=== PATIENT | male | born 1940 | race Caucasian/White ===

== ENCOUNTER → 2018-08-26 | Day surgery (SDC) | payer MEDICARE, BC ==
[2018-08-19 14:23] VITALS: BMI 30.3
[~2018-08-26] MED LIST: ALPRAZolam 0.25 MG TAB PO PRN; ALPRAZolam 0.5 MG TAB PO PRN; ASPIRIN 325 MG TAB PO STA; ATORVASTATIN 80 MG TAB PO STA; IOPAMIDOL-370 125ML BTL INJ ONE; LIDOCAINE 1% (PF) 10MG/ML VIAL SQ ONE; LIDOCAINE 1% INJ 10MG/ML (20 ML MDV) ONE; MIDAZOLAM 2 MG/2 ML VIAL IVP ONE; MIDAZOLAM 2 MG/2 ML VIAL ONE; NITROGLYCERIN SL TABS 0.4 MG TAB SUBLINGUAL PRN; RX INFO: IV CONTRAST WAS GIVEN 1 EACH MISC MISCELLANE PRN; SODIUM CHLORIDE 0.9% 1,000 ML IV SCH; SODIUM CHLORIDE 0.9% 1,000 ML in EMPTY BAG 1 BAG IV ONE; fentaNYL (PF) 50 MCG/ML 2 ML AMP IVP ONE; fentaNYL (PF) 50 MCG/ML 2 ML AMP ONE
[2018-08-26 08:41] VITALS: TEMP 98.1
[2018-08-26 08:44] LABS: Glucose,Whole Blood 165 mg/dL (75-99)
--- NOTE | 2018-08-26 10:06 | CC ---
CARDIAC CATHETERIZATION REPORT DATE OF SERVICE: August 26, 2018 PERFORMING PHYSICIAN: John Zhong MD, journalism instructor. PROCEDURE PERFORMED: 1. Selective right and left coronary angiogram. 2. Left heart catheterization. INDICATION: This is a pleasant 77-year-old gentleman with diabetes, hypertension, dyslipidemia, who was experiencing symptoms of chest discomfort concerning for angina. Because of the classical anginal symptoms, I decided to pursue with a heart catheterization. APPROACH: Right common femoral artery. COMPLICATION: None. LEVEL OF SEDATION: Moderate with sedation length of 17 minutes. PROCEDURE DESCRIPTION: After obtaining an informed consent, the patient was brought to cardiac chemical laboratory tester. The right common femoral artery was cannulated using micropuncture technique and a micropuncture wire passed easily then I placed a 6-Maori sheath in the right common femoral artery. Subsequently I did selective right and left coronary angiogram using JR4 and JL4 catheters. Left heart catheterization was performed using JR4 catheter. The procedure was completed without any complication. SELECTIVE CORONARY ANGIOGRAM: 1. The right coronary artery is a large caliber vessel. It is a dominant vessel. The RCA has mild diffuse disease only. Distally bifurcates into PDA and PLV branches both have mild disease only. 2. The left main is angiographically normal. It bifurcates into the left circumflex and left anterior descending artery. 3. The circumflex is a large caliber vessel. It is a nondominant vessel. The proximal circumflex appeared to be angiographically normal. It gives rise into a large first OM branch which had appeared to be angiographically normal. The mid circumflex appeared to be normal and gives rise into a second OM branch, which has a lesion appeared to be in the range of 50%, but the second OM is small to medium caliber vessel only. 4. The LAD: The proximal LAD is angiographically normal and gives rise into the first diagonal branch which appeared to be angiographically normal. The mid LAD has mild disease only and gives rise in second diagonal branch which appeared to be angiographically normal and the LAD distally is normal as well. HEMODYNAMICS: The left ventricular end-diastolic pressure was 12 mmHg and no significant gradient was identified across the aortic valve. CONCLUSION: Mild to moderate nonobstructive coronary artery disease. POSTPROCEDURE MANAGEMENT: Maximize medical treatment and follow up with the patient. MMODL / IJN: [id number] /
[2018-08-26 10:57] VITALS: RESP 18
--- NOTE | 2018-08-26 12:21 | LTR ---
August 26, 2018 Re: Andrea Atkinson Dear Dr. Garcia: Mr. Andrea Atkinson underwent a heart catheterization and that revealed only mild to moderate nonobstructive coronary artery disease. I want to thank you for allowing me to participate in his care and please do not hesitate to call if you have any question or concern. Sincerely, MD YORDAN Dorantes / MARIEL: [phone] /
[2018-08-26 12:50] VITALS: BP 125/70; PULSE 66
== END ==
LOC: CATHCVL 08:02
PROVIDERS: ATTEND Internal Medicine Interventional Cardiology
DX: I25.110 Atherosclerotic heart disease of native coronary artery with unstable angina pectoris (principal); I10 Essential (primary) hypertension; E78.5 Hyperlipidemia, unspecified; E11.9 Type 2 diabetes mellitus without complications; Z82.49 Family history of ischemic heart disease and other diseases of the circulatory system; E78.00 Pure hypercholesterolemia, unspecified; Z79.82 Long term (current) use of aspirin; Z79.899 Other long term (current) drug therapy
CPT/HCPCS: 93458; C1894; C1769 ×2; C1760; J2250; J3010; J2001; Q9967

== ENCOUNTER → 2021-06-16 | Outpatient (CLI) | payer MEDICARE, BC ==
--- NOTE | 2021-06-16 17:27 | MR ---
EXAMINATION TYPE: MR brain wo con DATE OF EXAM: 06/16/2021 COMPARISON: NONE HISTORY: CVA, Parkinson's diagnosis TECHNIQUE: Multiplanar, multisequence imaging of the brain and brainstem is performed without IV cont rast. FINDINGS: Diffusion weighted images demonstrate no evidence of a recent infarct or other diffusion abnormality. There is mild to moderate ventricular and sulcal prominence. A cavum vergae is present. Some scattere d foci of T2 hyperintensity throughout the white matter bilaterally greatest at deep and periventricu lar levels. Midline structures demonstrate normal morphology. The craniocervical junction appears within normal limits. Normal vascular flow voids are present. The visualized sinuses are clear and the globes are i ntact. IMPRESSION: Mild to moderate diffuse cerebral atrophy and mild chronic small vessel ischemic change.
== END | disposition home or self-care (01) ==
LOC: RADMRIMAIN 16:27
PROVIDERS: ATTEND Psychiatry & Neurology Neurology
DX: I67.82 Cerebral ischemia (principal)
CPT/HCPCS: 70551

== ENCOUNTER → 2022-05-10 | Outpatient (CLI) | payer MEDICARE, BC ==
--- NOTE | 2022-05-10 12:15 | XR ---
EXAMINATION TYPE: XR lumbar spine 2 or 3V DATE OF EXAM: 05/10/2022 COMPARISON: 08/30/2015 HISTORY: Groin pain TECHNIQUE: 3 view lumbar spine FINDINGS: Scoliosis present with convexity to the right centered at L3-4-5. There are 5 lumbar-type v ertebral bodies. The pedicles are intact. Degenerative disc changes are present L4-5 and L5-S1. Note is made of vascular calcification within the distal aorta. IMPRESSION: 1. Scoliosis and degenerative disc changes L4-S1.
== END | disposition home or self-care (01) ==
LOC: RADXRMAIN 09:55
PROVIDERS: ATTEND Family Medicine
DX: M51.27 Other intervertebral disc displacement, lumbosacral region (principal); M48.07 Spinal stenosis, lumbosacral region
CPT/HCPCS: 72100

== ENCOUNTER → 2022-06-14 | Outpatient (CLI) | payer MEDICARE, BC ==
--- NOTE | 2022-06-14 08:42 | MR ---
EXAMINATION TYPE: MR lumbar spine wo con DATE OF EXAM: 06/14/2022 COMPARISON: Lumbar spine x-ray May 10, 2022 HISTORY: Low back pain into left lower extremity, lumbar stenosis TECHNIQUE: Multiplanar, multisequence imaging of the lumbar spine is performed without IV contrast. FINDINGS: There is dextroconvex scoliosis centered at L4-L5 level. Sagittal images of the lumbar spin e show vertebral body heights to appear satisfactory. Alignment is straightened on sagittal images. M ultilevel disc desiccation is present. There is advanced disc space narrowing with heterogeneous Lina c type II endplate changes and moderate spurring at L4-L5 level. Prominent left lateral spur noted a t this level on plain films. There is additional mild multilevel disc space narrowing with relative s paring of L3-L4 level. The conus medullaris is normal in position and signal ending inferior L1 level . There is osseous hemangioma involving T12 vertebra noted sagittal image 9. Axial images at T12-L1 level show mild to moderate facet arthropathy and ligamentum flavum hypertroph y effacing the posterior lateral thecal sac. Patent bilateral neural foramina. Axial images at L1-L2 level show mild broad disc bulge minimally effacing the anterior thecal sac keerthi ng with mild facet arthropathy slightly effacing left posterolateral thecal sac. Patent bilateral lorrei ral foramina. Axial images at L2-L3 level show mild/moderate facet arthropathy and ligamentum flavum hypertrophy ef facing the left posterior lateral thecal sac on axial image 18. There is mild broad disc bulge with r ight foraminal/lateral disc protrusion component causing asymmetric mild to moderate right-sided ante rior inferior neural foraminal narrowing and mild right anterolateral spinal canal effacement. Left-s ided neural foramen is patent. Axial images at L3-L4 level show moderate broad-based posterior disc protrusion mildly effacing the a nterior thecal sac along with moderate facet arthropathy and ligamentum flavum hypertrophy effacing p osterior lateral thecal sac bilaterally. There is mild to moderate right greater than left bilateral neural foraminal narrowing. Axial images at the L4-L5 level show moderate facet arthropathy and ligamentum flavum hypertrophy eff acing left lateral thecal sac on axial image 8. There is [id number] broad disc bulge with left lateral spurring. Right-sided neural foramen is patent. Left side shows moderate narrowing. Axial images at the L5-S1 level show [id number] facet arthropathy bilaterally. There is right p aracentral disc protrusion minimally effacing the anterior thecal sac. There is moderate to severe le ft and mild right anterior inferior neural foraminal narrowing. Encroachment on the left L5 nerve keerthi ng its inferior margin is present sagittal image 4 and 5. No suspicious incidental retroperitoneal finding. IMPRESSION: Scoliosis with multilevel degenerative changes in the lumbar spine as detailed above. Att ention to L5-S1 level where encroachment on the exiting left L5 nerve is thought Present and may acco unt for patient's radiculopathy type symptoms.
== END | disposition home or self-care (01) ==
LOC: RADMRIMAIN 07:52
PROVIDERS: ATTEND Psychiatry & Neurology Neurology
DX: M47.26 Other spondylosis with radiculopathy, lumbar region (principal); M48.062 Spinal stenosis, lumbar region with neurogenic claudication
CPT/HCPCS: 72148

== ENCOUNTER → 2024-05-22 | Outpatient (CLI) | payer MEDICARE ==
[2024-05-22 16:14] LABS: African American GFR (CKD) 60 (>60 ml/min/1.73 sqM); Blood Urea Nitrogen 30 mg/dL (9-20); Non-African American GFR(CKD) 52 (>60 ml/min/1.73 sqM)
--- NOTE | 2024-05-24 14:12 | CT ---
EXAMINATION TYPE: CT abdomen pelvis w con DATE OF EXAM: 05/22/2024 COMPARISON: None INDICATION: ABD MASS DLP: 1570 mGycm, Automated exposure control for dose reduction was used. CONTRAST: 100 mL of Isovue 300. Study performed with Oral Contrast TECHNIQUE: Axial images were obtained from above the diaphragm to the pubic rami in the axial plane a t 5 mm thick sections. Reconstructed images are reviewed on the computer in the coronal plane. FINDINGS: Limited CT sections are obtained the lung bases. The lung bases are clear. CT ABDOMEN: Liver: Normal Spleen: Normal Pancreas: There is a low-density structure in the anterior tail of pancreas measuring 3.1 x 2.8 cm ma y be a small pseudocyst. Adjacent calcifications are present. Differential diagnosis includes cystade noma and cystadenocarcinoma. Workup is recommended. Consider MRI with contrast for additional evaluat ion. Remainder of the head and body proximal tail of the pancreas appears unremarkable. Adrenal glands: The adrenal glands are normal. Gallbladder: Surgically absent Kidneys: No masses are evident. No hydronephrosis is present. No cysts are present. Delayed images were obtained through the kidneys, which remain unremarkable. Aorta: Vascular calcification is within the aorta. Inferior vena cava: Normal. CT PELVIS: Loops of bowel within the abdomen and pelvis are normal. Fecal debris is within the colon greater in the sigmoid colon. Some mild fecal retention at the level of the rectum may be present. Correlation recommended. There are loops of bowel which are incompletely distended or lack oral contrast limiti ng their evaluation. Appendix: Normal as visualized. Urinary bladder: Normal. Genitourinary structures: Prostate is slightly prominent. Osseous structures: No suspicious lytic or sclerotic lesions. IMPRESSION: 1. Cyst on the anterior tail of the pancreas. Additional workup is recommended. Neoplasm is not excl uded.
== END | disposition home or self-care (01) ==
LOC: RADCTMAIN 15:28
PROVIDERS: ATTEND Family Medicine
DX: K86.2 Cyst of pancreas (principal)
CPT/HCPCS: 82565; 84520; 74177; 36415; Q9967

== ENCOUNTER → 2024-06-27 | Outpatient (CLI) | payer MEDICARE ==
--- NOTE | 2024-07-21 15:23 | MR ---
Patient: Andrea Atkinson G Ordering Physician: Unknown, Unknown ID: [id number] Phone, Pager: Phone: N /A Pager: N/A : [phone] Age/Gender: 83Y, M Primary Location: N/A Procedure: MR pancreas wo/w con Study Date: 06/27/2024 1:43:33 PM EXAMINATION TYPE: MR pancreas wo/w con DATE OF EXAM: 07/05/2024 11:34 AM CLINICAL INDICATION: Pancreatic lesion COMPARISON: CT scan abdomen from 05/22/2024 TECHNIQUE: Multiplanar multi-sequence imaging was performed without contrast. Post contrast imaging was performed. Post IV contrast subtraction images were also submitted for review. IV Contrast: 10 cc Gadavist. FINDINGS: LOWER CHEST: No gross irregularity. ABDOMEN Liver: No evidence for hepatic steatosis or cirrhosis. Gallbladder and Bile ducts: No evidence for ductal dilation, or biliary stricture or evidence of chol edocholithiasis. The gallbladder is within normal limits. Pancreas: Low T2 signal lesion anterior to the pancreatic tail measuring 33 x 29 mm with intrinsic hi gh T1 signal.. No ductal dilation. No evidence for solid mass. Spleen: Normal for size. Adrenal glands: Unremarkable. Kidneys: No evidence for obstructive uropathy. No suspicious renal masses. Scattered nonenhancing cys ts throughout the kidneys bilaterally. Stomach and Bowel: No evidence for bowel wall thickening or evidence for obstruction. Retroperitoneum/Peritoneum: No evidence of pneumoperitoneum or free fluid. Vasculature: No aortic aneurysm. Musculoskeletal: The osseous structures appear intact. Lymph Nodes: No gross evidence for lymphadenopathy. Abdominal wall: Unremarkable. IMPRESSION: 1. Pancreatic tail cystic lesion intrinsic high T1 signal suggesting proteinaceous content/hemorrhag e. Surveillance imaging 12 months recommended to ensure stability. Findings could represent sidebranc h intraductal papillary mucinous neoplasm versus sequela prior pancreatitis versus other cystic neopl asms which are felt to be less likely.
== END | disposition home or self-care (01) ==
LOC: RADMRIMAIN 13:45
PROVIDERS: ATTEND Family Medicine
DX: K86.2 Cyst of pancreas (principal)
CPT/HCPCS: 74183; A9585